=== PATIENT | female | born 2000 | race Two or more races ===

== ENCOUNTER 2022-10-18 18:04 | Emergency (ER) | payer BC, OTHER ==
[~2022-10-18] VITALS: Ht 175.3 cm; Wt 73.0 kg
[2022-10-18] MEDS ORDERED: ACETAMINOPHEN 325 MG TAB PO ONE (18:45)
[2022-10-18] MEDS ORDERED: LORA-483 GT (20:23)
[2022-10-18] MEDS ORDERED: BENZ100C19 PO (20:23)
[2022-10-18] MEDS ORDERED: ACET-1158 PO (20:23)
[2022-10-18 21:26] VITALS: BP 116/79
== END 2022-10-18 21:28 | disposition home or self-care (01) ==
LOC: ER 18:04
DX: J06.9 Acute upper respiratory infection, unspecified (principal); B97.89 Other viral agents as the cause of diseases classified elsewhere; Z20.822 Contact with and (suspected) exposure to COVID-19
CPT/HCPCS: 36415; 87426; 87804